=== PATIENT | female | born 1945 | race Caucasian/White ===

== ENCOUNTER 2017-05-21 12:30 | Inpatient (IN) | payer OTHER ==
--- NOTE | ~2017-05-21 | CATHLAB ---
[facility] [address] [place] [address] INVASIVE PROCEDURE REPORT Name: LAURA CHI Room #: 214-P [facility]#: [id number] Admission: 05/21/17 Attend Phys: Vishal Moulton Discharge: 05/22/17 Date of : 47 Date of Service: 05/22/17 1356 Report #: [id number] THIS REPORT FOR: //name// CC: Steve Dumas DATE OF SERVICE: 05/22/2017 PROCEDURES: 1. Electrical cardioversion. 2. Supervision of conscious sedation. INDICATIONS: A 72-year-old female patient with symptomatic atrial fibrillation, presents for electrical cardioversion, having failed pharmacologic attempts. TECHNICAL PROFESSIONAL: Vishal Dumas M.D. BRIEF DESCRIPTION OF PROCEDURE: After informed consent was obtained, the patient was brought to the cardiac agriculture laborer, prep and hold. AP patches in place. Continuous electrocardiographic and oximetric monitoring was performed. Versed 2 mg and 25 of Demerol were given for sedation. The patient underwent one single biphasic 200-joule shock, which converted her to sinus rhythm. Post-procedure, the patient was monitored till awake and alert. She tolerated the procedure, there were no complications. <ELECTRONICALLY SIGNED> By: Vishal Dumas MD 06/09/17 1128 1356 2120 Vishal Dumas MD /nt
--- NOTE | ~2017-05-21 | H ---
[facility] [place] [address] HISTORY AND PHYSICAL Name: LAURA CHI Room #: 214-P [facility] IN M.R.#: [id number] Admission: 05/21/17 Attend Phys: Vishal Dumas Discharge: 05/22/17 Date of : 47 Report #: [id number] THIS REPORT FOR: //name// CC: Steve Dumas DATE OF SERVICE: 05/21/2017 HISTORY OF PRESENT ILLNESS: This is a very pleasant female well known to me who underwent initial diagnosis of atrial fibrillation previously. She has been anticoagulated adequately for 4 weeks and now presents for cardioversion. She denies any significant chest pain, pressure, tightness, heaviness, fullness, is not having significant problems. She is tolerating the medications quite well and has been adequately anticoagulated with a novel agent of Eliquis. ALLERGIES: NO KNOWN DRUG ALLERGIES. PAST MEDICAL HISTORY: Significant for acid peptic disease, hypertension, history of non-Hodgkin's lymphoma, and breast cancer. PAST SURGICAL HISTORY: Significant for right mastectomy and hysterectomy. REVIEW OF SYSTEMS: Except for symptoms previously mentioned and those commensurate with comorbid state, the 10-point review of system is negative. PHYSICAL EXAMINATION: GENERAL: Well-developed female, resting normally, in no acute distress. VITAL SIGNS: Noted in the chart. HEENT: Normocephalic, atraumatic. Pupils are equal, round, reactive to light and accommodation. Extraocular muscles are intact. Sclerae and conjunctivae are anicteric. NECK: JVD is normal. Carotid upstrokes are bilaterally symmetrical. No bruits are heard. No thyromegaly. No lymphadenopathy. LUNGS: Clear to auscultation. No wheezes, rhonchi or crackles. No CVA tenderness. CARDIAC: Demonstrates a regular rhythm. Normal first and second heart sounds. No ventricular or atrial gallops, no rubs noted. No murmurs. No lifts or heaves, PMI normal. ABDOMEN: Soft, nontender, nondistended. Normal bowel sounds. EXTREMITIES: Without cyanosis, clubbing or edema. Distal pulses are intact. DTR symmetrical. NEUROLOGIC: Cranial nerves 2-12 are grossly normal and symmetrical. PSYCHIATRIC: Alert, oriented with normal affect. SKIN: Warm and dry. IMPRESSION: Paroxysmal atrial fibrillation. Rate is controlled, anticoagulated here for cardioversion. The risks, complications and alternatives to chemical [facility] [address] [place] [address] HISTORY AND PHYSICAL Name: LAURA CHI Room #: 214-P [facility] IN [facility].#: [id number] Admission: 05/21/17 Attend Phys: Vishal Dumas Discharge: 05/22/17 Date of : 47 Report #: [id number] and subsequent electrical cardioversion warranted had been discussed with the patient; she voices understanding and wishes to proceed. <ELECTRONICALLY SIGNED> By: Vishal Dumas MD 06/09/17 1127 1213 2358 Vishal Dumas MD /elizabeth
--- NOTE | ~2017-05-21 | EKG ---
[address] [place] [address] ELECTROCARDIOGRAM REPORT Name: LAURA CHI Room #: 214-[facility] IN M.R.#: [id number] Admission: 05/21/17 Attend Phys: Vishal Dumas Discharge: 05/22/17 Date of : 47 Report #: [id number] THIS REPORT FOR: //name// [facility] Test Date: 2017-05-22 Test Time: 12:03:18 Pat Name: LAURA CHI Department: Room: 214 P Gender: F Logistics Project Manager: Francisca STATON : 1945 Requested By: Vishal Dumas Order Number: [id number] MD: Rey Bustillos Measurements Intervals [place] Rate: 75 P: 60 VA: 174 QRS: 154 QRSD: 134 T: 22 QT: 485 QTc: 542 Interpretive Statements Sinus rhythm Right bundle branch block Compared to ECG 01/06/2017 05:38:13 Atrial fibrillation no longer present Electronically Signed On 05-22-2017 16:15:48 SOFT METALS ENGRAVER HAND by Rey Bustillos [email or web address] <ELECTRONICALLY SIGNED> By: Rey Bustillos MD, [facility] 05/22/17 1615 1203 1203 Rey Bustillos MD, [facility] /EPI
--- NOTE | ~2017-05-21 | D ---
[facility] [place] [address] DISCHARGE SUMMARY Name: LAURA CHI Room #: 214-P [facility] IN M.R.#: [id number] Admission: 05/21/17 Attend Phys: Vishal Dumas Discharge: 05/22/17 Date of : 47 Report #: [id number] THIS REPORT FOR: //name// CC: Steve Dumas DATE OF SERVICE: 05/22/2017 ADMITTING DIAGNOSIS: Symptomatic paroxysmal atrial fibrillation. DISCHARGE GIAGNOSIS: Symptomatic paroxysmal atrial fibrillation. PROCEDURE PERFORMED: Electrical cardioversion. DISCHARGE MEDICATIONS: 1. Home meds. 2. Amiodarone 200 mg p.o. b.i.d. for 1 week, then q.a.m. for one week, then half a tablet from then on. FOLLOWUP: Dr. Dumas in 4 weeks. DISCHARGE DIET: Home diet. BRIEF CLINICAL HISTORY: See history and physical in the chart. HOSPITAL COURSE: The patient was admitted to the hospital and underwent IV amiodarone infusion. Subsequently, did not convert her and she underwent uncomplicated electrical cardioversion requiring 200 joules single shot AP paddles with a biphasic mode. This converted to sinus rhythm. The patient did well post-procedure and was allowed to ambulate without any issues developing. Discharged in improved and stable condition to follow up with previous stated discharge instructions and medications. <ELECTRONICALLY SIGNED> By: Vishal Dumas MD 06/09/17 1127 1205 Tg Dumas MD /elizabeth
[~2017-05-21 12:30] MED LIST: ACETAMINOPHEN325 M1 PO; ALBUTEROL2.5 MG/0.5 INH; ASPIR 8181 MG PO; CALCIUM 500 +1 EAC5 PO; CENTRUM SILVER1 EAC4 PO; CLARITIN10 MG PO; COREG6.25 MG PO; CULTURELLE1 EACH PO; DIFLUCAN200 MG IV; DILTIAZEM 24HR240 M1 PO; ELIQUIS5 MG PO; EVISTA PO; HEPARIN SO1000 UNIT/ IV PUSH; MORPHINE 44 MG/1 ML IV PUSH; ZOSYN 2.25 GR2.25 GM IV
[2017-05-21 12:55] VITALS: BP 1255/65
[2017-05-21 13:56] LABS: CREATININE 0.8 mg/dL (0.6-1.0); POTASSIUM 3.8 mmol/L (3.5-5.1)
[2017-05-21 14:01] LABS: ALBUMIN 3.1 g/dL (3.4-5.0); TOTAL BILIRUBIN 0.3 mg/dL (<0.1-1.0); TOTAL PROTEIN 6.9 g/dL (6.4-8.2)
[2017-05-21] MEDS ORDERED: PROTONIX40 M1 PO (15:10)
[2017-05-21] MEDS ORDERED: CALCIUM 600 +1 EAC1 PO (15:12)
[2017-05-21] MEDS ORDERED: ASPIR 8181 M1 PO (15:12)
[2017-05-21] MEDS ORDERED: CARTIA XT240 M1 PO (15:12)
[2017-05-21] MEDS ORDERED: ELIQUIS5 MG PO (15:13)
[2017-05-21] MEDS ORDERED: LASIX 40 MG TAB40 M2 PO (15:14)
[2017-05-21] MEDS ORDERED: K-DUR 20 MEQ T20 MEQ PO (15:15)
[2017-05-21 16:05] VITALS: BP 124/68
[2017-05-21 19:28] VITALS: BP 111/56
[2017-05-22 00:14] VITALS: BP 107/65
[2017-05-22 04:37] VITALS: BP 109/65
[2017-05-22 07:59] VITALS: BP 129/90
[2017-05-22 12:48] VITALS: BP 129/90
[2017-05-22] MEDS ORDERED: PACERONE 200 M200 M1 PO (13:07)
== END 2017-05-22 13:45 | disposition home or self-care (01) | DRG 310 ==
LOC: 2N 12:30 → ENTRNSPT 05-22 13:31 → EDTRNSPTSTS 05-22 13:34 → 2N 05-22 13:45
PROVIDERS: Internal Medicine
PROC: 5A2204Z Restoration of Cardiac Rhythm, Single (ICD-10-PCS; principal; 2017-05-22)
DX: I48.0 Paroxysmal atrial fibrillation (principal); I10 Essential (primary) hypertension; Z85.72 Personal history of non-Hodgkin lymphomas; Z85.3 Personal history of malignant neoplasm of breast; Z90.11 Acquired absence of right breast and nipple; Z90.710 Acquired absence of both cervix and uterus
CPT/HCPCS: 10797

== ENCOUNTER 2018-10-02 07:18 | Emergency (ER) | payer OTHER ==
[~2018-10-02] VITALS: Ht 162.6 cm; Wt 65.5 kg
[~2018-10-02 07:18] MED LIST changes: +ASPIR 8181 M1 PO; +CALCIUM 600 +1 EAC1 PO; +CARTIA XT240 M1 PO; +K-DUR 20 MEQ T20 MEQ PO; +LASIX 40 MG TAB40 M2 PO; +PACERONE 200 M200 M1 PO; +PROTONIX40 M1 PO
[2018-10-02 07:48] LABS: ABSOLUTE NEUTROPHILS 4.3 thou/uL (1.4-8.2); BASOPHILS 0.6 % (0.0-2.0); EOSINOPHILS 1.9 % (0.0-3.0); HEMATOCRIT 43.8 % (37.0-47.0); HEMOGLOBIN 15.1 gm/dL (12.0-15.0); MCH 30.9 pg (26.0-34.0); MCHC 34.4 g/dL (28.0-37.0); MCV 89.8 fL (80.0-100.0); MONOCYTES 7.4 % (1.0-8.0); PLATELET COUNT 214 thou/uL (150-400); POLYS 59.1 % (36.0-66.0); RBC 4.88 mil/uL (4.20-5.00); RDW 14.2 % (10.5-14.5); WBC 7.2 thou/uL (4.0-11.0)
[2018-10-02 07:54] LABS: ANION GAP 8 mmol/L (7-16); BUN 12 mg/dL (7-18); CALCIUM 9.9 mg/dL (8.5-10.1); CHLORIDE 103 mmol/L (98-107); CO2 27 mmol/L (21-32); CREATININE 0.9 mg/dL (0.6-1.0); GLUCOSE 143 mg/dL (74-106); POTASSIUM 3.8 mmol/L (3.5-5.1); SODIUM 138 mmol/L (136-145)
[2018-10-02 08:03] LABS: TROPONIN-I <0.06 ng/mL (<0.06)
[2018-10-02 08:30] VITALS: BP 125/59
--- NOTE | 2018-10-05 17:56 | EKG ---
[place] [address] [place] [address] ELECTROCARDIOGRAM REPORT Name: LAURA CHI Room #: [facility]#: [id number] ������������������ Admission: 10/02/18 ������������������ Attend Phys: Discharge: 10/02/18 ������������������ Date of : 47 Report #: [id number] ����������������������������������������������������������������� [id number] THIS REPORT FOR: //name// [facility] ED Test Date: 2018-10-02 Test Time: 07:24:00 Pat Name: LAURA CHI Department: Room: Gender: F Enforcement Officer: regency meridian : 1945 Requested By: Fabio Dsouza Order Number: [id number] MD: Rey Bustillos Measurements Intervals [place] Rate: 89 P: 70 FL: 156 QRS: -84 QRSD: 148 T: 27 QT: 429 QTc: 523 Interpretive Statements Sinus rhythm Multiform ventricular premature complexes RBBB and LAFB Compared to ECG 05/22/2017 12:03:18 Ventricular premature complex(es) now present Electronically Signed On 10-05-2018 17:55:53 CDT by Rey Bustillos [email or web address] ��������������������������������������������� <ELECTRONICALLY SIGNED> ���������������������������������������� By: Rey Bustillos MD, [facility] ��������������������������������������������� 10/05/18 1755 3 3 Rey Bustillos MD, [facility] /EPI
== END 2018-10-02 08:14 | disposition home or self-care (01) ==
LOC: ER 07:18
PROVIDERS: Emergency Medicine
DX: R00.2 Palpitations (principal); I49.3 Ventricular premature depolarization; Z85.3 Personal history of malignant neoplasm of breast; Z90.710 Acquired absence of both cervix and uterus; Z90.10 Acquired absence of unspecified breast and nipple

== ENCOUNTER → 2020-02-19 | Outpatient (CLI) | payer OTHER | LOC: SJCVC 09:55 | PROVIDERS: ATTEND Internal Medicine | DX: I48.19 Other persistent atrial fibrillation (principal); I45.10 Unspecified right bundle-branch block; R94.31 Abnormal electrocardiogram [ECG] [EKG]; I73.9 Peripheral vascular disease, unspecified; I38 Endocarditis, valve unspecified; E78.5 Hyperlipidemia, unspecified; I25.10 Atherosclerotic heart disease of native coronary artery without angina pectoris; Z79.899 Other long term (current) drug therapy; Z82.49 Family history of ischemic heart disease and other diseases of the circulatory system ==

== ENCOUNTER → 2020-02-23 | Outpatient (CLI) | payer OTHER | LOC: SJCVCIMAG 09:42 | PROVIDERS: ATTEND Internal Medicine | DX: I08.8 Other rheumatic multiple valve diseases (principal); I48.91 Unspecified atrial fibrillation; I25.10 Atherosclerotic heart disease of native coronary artery without angina pectoris; Z79.899 Other long term (current) drug therapy ==

== ENCOUNTER → 2020-08-29 | Outpatient (CLI) | payer OTHER | LOC: SJCVC 09:16 | PROVIDERS: ATTEND Internal Medicine | DX: K25.5 Chronic or unspecified gastric ulcer with perforation (principal); K37 Unspecified appendicitis; K25.9 Gastric ulcer, unspecified as acute or chronic, without hemorrhage or perforation; I48.91 Unspecified atrial fibrillation; I25.10 Atherosclerotic heart disease of native coronary artery without angina pectoris; E78.5 Hyperlipidemia, unspecified; Z85.3 Personal history of malignant neoplasm of breast ==

== ENCOUNTER → 2020-09-28 | Outpatient (CLI) | payer OTHER | LOC: SJCVC 09:40 | PROVIDERS: ATTEND Internal Medicine | DX: I42.9 Cardiomyopathy, unspecified (principal); I48.91 Unspecified atrial fibrillation; I25.10 Atherosclerotic heart disease of native coronary artery without angina pectoris; E78.5 Hyperlipidemia, unspecified; Z79.82 Long term (current) use of aspirin; Z79.899 Other long term (current) drug therapy; Z85.3 Personal history of malignant neoplasm of breast ==

== ENCOUNTER → 2020-10-05 | Outpatient (CLI) | payer OTHER | LOC: SJCVC 08:49 | PROVIDERS: ATTEND Internal Medicine | DX: I42.9 Cardiomyopathy, unspecified (principal); I25.10 Atherosclerotic heart disease of native coronary artery without angina pectoris; I48.91 Unspecified atrial fibrillation; E78.5 Hyperlipidemia, unspecified; Z79.82 Long term (current) use of aspirin; Z79.899 Other long term (current) drug therapy; Z85.3 Personal history of malignant neoplasm of breast ==

== ENCOUNTER → 2021-01-04 | Outpatient (CLI) | payer OTHER ==
[~2021-01-04] MED LIST changes: +BIOTIN1000 MCG PO; +CARVEDILOL25 MG PO; +LISINOPRIL2.5 MG PO; +LORATIDINE 10 M10 M1 PO; +SIMVASTATIN10 MG PO
== END ==
LOC: SJCVCIMAG 12-29 08:59
PROVIDERS: ATTEND Internal Medicine
DX: I08.8 Other rheumatic multiple valve diseases (principal); I48.91 Unspecified atrial fibrillation; I42.9 Cardiomyopathy, unspecified; I50.9 Heart failure, unspecified

== ENCOUNTER 2021-01-11 08:46 | Observation (INO) | payer OTHER ==
[~2021-01-11] VITALS: Ht 162.6 cm; Wt 64.0 kg
[~2021-01-11 08:46] MED LIST changes: -BIOTIN1000 MCG PO; -CARVEDILOL25 MG PO; -LISINOPRIL2.5 MG PO; -LORATIDINE 10 M10 M1 PO; -SIMVASTATIN10 MG PO
[2021-01-11 09:55] VITALS: BP 130/81
[2021-01-11] MEDS ORDERED: BIOTIN1000 MCG PO (10:05)
[2021-01-11] MEDS ORDERED: CARVEDILOL25 MG PO (10:08)
[2021-01-11] MEDS ORDERED: SIMVASTATIN10 MG PO (10:08)
[2021-01-11] MEDS ORDERED: LORATIDINE 10 M10 M1 PO (10:09)
[2021-01-11] MEDS ORDERED: LISINOPRIL2.5 MG PO (10:09)
[2021-01-11 10:20] LABS: HEMATOCRIT 44.1 % (37.0-47.0); HEMOGLOBIN 14.8 gm/dL (12.0-15.0); MCH 31.1 pg (26.0-34.0); MCHC 33.5 g/dL (28.0-37.0); MCV 92.7 fL (80.0-100.0); RBC 4.75 mil/uL (4.20-5.00); RDW 14.6 % (10.5-14.5); WBC 5.6 thou/uL (4.0-11.0)
[2021-01-11 10:24] LABS: CALCIUM 9.2 mg/dL (8.5-10.1); CREATININE 1.2 mg/dL (0.6-1.0); POTASSIUM 3.8 mmol/L (3.5-5.1)
--- NOTE | 2021-01-11 10:41 | 2DMMODE ---
[facility] [address] [place] [address] 2 D/M-MODE ECHOCARDIOGRAM Name: LAURA CHI Room #: REG [facility]#: [id number] Admission: 01/11/21 Attend Phys: Vishal Dumas Discharge: Date of : 47 Report #: [id number] THIS REPORT FOR: cc: Juan Jorgensen MD, Christopher B. MD Lammoglia, Francisco J. MD ~ APPROVED REPORT Study performed: 01/11/2021 09:09:09 EXAM: Comprehensive 2D, Doppler, and color-flow Echocardiogram Patient Location: Out-Patient Status: routine BSA: 1.67 HR: 100 bpm Rhythm: Atrial Fibrillation Other Information Study Quality: Good Indications Pre-Op ICD placement. 2D Dimensions IVSd: 7.80 (7-11mm) LVOT Diam: 19.52 (18-24mm) LVDd: 53.41 mm PWd: 8.64 (7-11mm) Ascending Ao: 29.70 (22-36mm) LVDs: 48.27 (25-40mm) Left Atrium: 34.64 (27-40mm) Aortic Root: 29.69 mm Volumes Left Atrial Volume (Systole) Single Plane 4CH: 45.74 mL Single Plane 2CH: 53.47 mL LA ESV Index: 31.00 mL/m2 Aortic Valve AoV Peak Murali.: 0.89 m/s AO Peak Gr.: 3.15 mmHg LVOT Max P.64 mmHg LVOT Max V: 0.64 m/s PETER Vmax: 2.16 cm2 [facility] [address] [place] [address] 2 D/M-MODE ECHOCARDIOGRAM Name: ARTILAURA Aleksandra Room #: REG [facility]#: [id number] Admission: 01/11/21 Attend Phys: Vishal Moulton Discharge: Date of : 47 Report #: [id number] Mitral Valve MV Decel. Time: 104.64 ms MV E Max Murali.: 1.02 m/s Pulmonary Valve PV Peak Murali.: 0.54 m/s PV Peak Gr.: 1.15 mmHg Tricuspid Valve TR Peak Murali.: 3.00 m/s RAP Estimate: 5.00 mmHg TR Peak Gr.: 35.00 mmHg PA Pressure: 40.00 mmHg Left Ventricle The left ventricle is normal size. There is normal left ventricular wall thickness. Left ventricular systolic function is severely decreased. LVEF is 25-30%. This study is not technically sufficient to allow evaluation of the LV diastolic function due to atrial fibrillation. Right Ventricle The right ventricle is normal size. Right ventricle is mildly hypokinetic. Atria Left atrium is mildly dilated. The right atrium size is normal. Aortic Valve The aortic valve is normal in structure. Trace aortic regurgitation. There is no aortic valvular stenosis. Mitral Valve The mitral valve is normal in structure. Moderate mitral regurgitation. Tricuspid Valve The tricuspid valve is normal in structure. Mild tricuspid regurgitation. Estimated PAP is 40mmHg. Pulmonic Valve The pulmonary valve is normal in structure. Trace pulmonic regurgitation. Great Vessels The aortic root is normal in size. The ascending aorta is normal in size. IVC is normal in size and collapses >50% with [facility] [address] [place] [address] 2 D/M-MODE ECHOCARDIOGRAM Name: LAURA CHI Room #: REG [facility]#: [id number] Admission: 01/11/21 Attend Phys: Vishal Moulton Discharge: Date of : 47 Report #: [id number] inspiration. Pericardium There is no pericardial effusion. <Conclusion> The left ventricle is normal size. Left ventricular systolic function is severely decreased. LVEF is 25-30%. The right ventricle is normal size. Right ventricle is mildly hypokinetic. Left atrium is mildly dilated. The aortic valve is normal in structure. Trace aortic regurgitation. The mitral valve is normal in structure. Moderate mitral regurgitation. The tricuspid valve is normal in structure. Mild tricuspid regurgitation. Estimated PAP is 40mmHg. The pulmonary valve is normal in structure. Trace pulmonic regurgitation. The aortic root is normal in size. There is no pericardial effusion. <ELECTRONICALLY SIGNED> By: Vishal Dumas MD 01/11/21 104 40 40 Vishal Dumas MD /INF
[2021-01-11 16:30] VITALS: BP 145/84
--- NOTE | 2021-01-11 17:47 | NUR ---
PATIENT ARRIVED TO UNIT AT 1620. PT IS STABLE AT TIME OF ADMISSION. PT IS ORIENTED TO UNIT AND GIVEN TEACHING COMMERCIAL MAINTENANCE TECHNICIAN LIGHT, FALL PREVENTION, BATHROOM, AND DISCHARGE PLANING. PTS TELE MONITOR APPLIED PT IS AFIB WITH A HEART RATE IN THE 100'S. PT IS RESTING IN BED WITH IMMOBLIZER IN PLACE. SITE HAS NO REDNESS OR INFLAMATION AT THIS TIME AND PT IS COMPLAING OF NO PAIN. WILL CONTINUE TO MONITOR.
[2021-01-11 19:27] VITALS: BP 109/59
--- NOTE | 2021-01-11 19:29 | NUR ---
NOTIFED DR. JUAREZ ABOUT NO ORDERS FOR MEDICATIONS, STATED NO NEW MEDICATION FOR PATIENT TO TAKE TONIGHT, WILL RESUME HOME MEDS
--- NOTE | 2021-01-12 03:21 | NUR ---
UPON SHIFT REPORT, PT SLEEPING. PT OBSERVED RESTING WITHOUT INTERRUPTION OR OBSERVATION OF PAIN, DISCOMFORT OR SOB WHILE ON ROOM AIR. PT RESTING IN BED FOR REMAINDER OF SHIFT, FREQUENT REPOSITIONING ENCOURAGED WHILE IN BED, PT NOTED TO SHIFT INDEPENDENTLY. PT ENCOURAGED TO NOTIFY STAFF FOR ALL NEEDS, CALL LIGHT WITHIN REACH, BED ALARM ON, BED LOCKED IN LOWEST POSITION, FREQUENT MONITORING WILL CONTINUE.
[2021-01-12 03:54] VITALS: BP 141/95
[2021-01-12 07:04] VITALS: BP 162/79
--- NOTE | 2021-01-12 10:09 | NUR ---
TOOK OVER CARE FOR THIS PATIENT AT 0700. PATIENT RESTING IN BED AT THIS TIME. PATIENT DENIES ANY NEEDS RIGHT NOW. PATIENT DENIES PAIN, SOA, HEADACHE, DIZZINESS, OR FATIGUE. PATIENT WENT FOR CHEST XRAY THIS MORNING. DISCHARGE PENDING WAITING FOR PROPERTY STAFF ACCOUNTANT TO SEE PATIENT. FALL PRECAUTIONS IN PLACE, CALL LIGHT AND PERSONAL ITEMS WITHIN REACH.
[2021-01-12 11:20] VITALS: BP 110/63
[2021-01-12 16:11] VITALS: BP 144/80
[2021-01-12 17:40] VITALS: BP 144/80
--- NOTE | 2021-01-12 18:16 | NUR ---
DISCHARGE EDUCATION PROVIDED TO PATIENT AND SON PRESENT FOR EDUCATIONAL SESSION. PATIENT AGREEABLE TO DISCHARGE PLAN AND PLANS TO FOLLOW UP WITH LABOR SERVICE REPRESENTATIVE INDICATED. PATIENT DISCHARGED VIA PERSONAL VEHICLE BY NURSING STAFF. DENIES ANY QUESTIONS OR CONCERNS.
== END 2021-01-12 18:39 | disposition home or self-care (01) ==
LOC: CATH 08:46 → 2N 16:56
PROVIDERS: ADMIT Internal Medicine; ATTEND Internal Medicine
DX: I42.9 Cardiomyopathy, unspecified (principal); I48.21 Permanent atrial fibrillation; I10 Essential (primary) hypertension; E78.5 Hyperlipidemia, unspecified; I34.0 Nonrheumatic mitral (valve) insufficiency; Z79.82 Long term (current) use of aspirin; Z79.899 Other long term (current) drug therapy

== ENCOUNTER 2021-02-27 05:43 | Inpatient (IN) | payer OTHER ==
[~2021-02-27] VITALS: Ht 162.6 cm; Wt 62.1 kg
[~2021-02-27 05:43] MED LIST changes: +BIOTIN1000 MCG PO; +CARVEDILOL25 MG PO; +LISINOPRIL2.5 MG PO; +LORATIDINE 10 M10 M1 PO; +SIMVASTATIN10 MG PO
[2021-02-27 05:54] VITALS: BP 101/67
[2021-02-27 06:44] LABS: ABSOLUTE NEUTROPHILS 4.7 thou/uL (1.4-8.2); BASOPHILS 1.1 % (0.0-2.0); EOSINOPHILS 5.1 % (0.0-3.0); HEMATOCRIT 43.3 % (37.0-47.0); HEMOGLOBIN 13.9 gm/dL (12.0-15.0); LYMPHOCYTES 20.4 % (24.0-44.0); MCH 29.3 pg (26.0-34.0); MCHC 32.2 g/dL (28.0-37.0); MONOCYTES 8.8 % (1.0-8.0); PLATELET COUNT 233 thou/uL (150-400); POLYS 64.6 % (36.0-66.0); RBC 4.76 mil/uL (4.20-5.00); RDW 15.2 % (10.5-14.5); WBC 7.3 thou/uL (4.0-11.0)
[2021-02-27 06:50] LABS: CALCIUM 9.3 mg/dL (8.5-10.1); POTASSIUM 3.5 mmol/L (3.5-5.1)
--- NOTE | 2021-02-27 09:01 | EKG ---
[place] [address] [facility] [place] [address] ELECTROCARDIOGRAM REPORT Name: LAURA CHI [id number] Admission: 02/27/21 Attend Phys: Discharge: Date of : 47 Report #: [id number] [facility] ED Test Date: 2021-02-27 Test Time: 05:56:15 Pat Name: LAURA CHI Department: Room: Gender: F Sign Installer: ALICE : 1945 Requested By: Noel Tatum Order Number: [id number] MD: Rey Bustillos Measurements Intervals [place] Rate: 112 P: [place]: QRS: 160 QRSD: 132 T: 26 QT: 380 QTc: 519 Interpretive Statements Atrial fibrillation Right bundle branch block Abnormal lateral Q waves Anteroseptal infarct, old Baseline wander in lead(s) V2 Compared to ECG 10/02/2018 07:24:00 Q waves now present Sinus rhythm no longer present Electronically Signed On 02-27-2021 9:01:05 MEDICAL ASSISTANT SECRETARY by Rey Bustillos [email or web address] <ELECTRONICALLY SIGNED> By: Rey Bustillos MD, [facility] 02/27/21 0901 0556 0556 Rey Bustillos MD, [facility] /EPI
--- NOTE | 2021-02-27 10:51 | NUR ---
Pt helped to bedside commode with this RN, pt transfered with a steady gait and denies any dizziness
[2021-02-27 14:39] LABS: URINE BILIRUBIN NEGATIVE (Negative); URINE BLOOD 1+ (Negative); URINE CLARITY CLEAR; URINE COLOR YELLOW; URINE GLUCOSE-RANDOM* NEGATIVE (Negative); URINE KETONES NEGATIVE (Negative); URINE LEUKOCYTES-REFLEX NEGATIVE (Negative); URINE NITRITE-REFLEX NEGATIVE (Negative); URINE PROTEIN (DIPSTICK) NEGATIVE (Negative); URINE UROBILINOGEN 0.2 E.U./dl (0.2-1.0)
--- NOTE | 2021-02-27 14:41 | NUR ---
Nanette JONES with the patients cardiology group called back for consult. She was informed patient would like to speak to her cuff runner before allowin the hospital to put a central line in her for Levophed. Nanette JONES informs this RN she will speak with the cuff runner and try and get him to come by and speak to the patient.
[2021-02-27 14:58] LABS: SQUAMOUS 0-3 Few /LPF (0-3)
[2021-02-27 14:59] LABS: BACTERIA-REFLEX None Seen /HPF (None Seen); CASTS None Seen /LPF (None Seen); CRYSTALS None Seen /LPF (None Seen); URINE RBC 3-10 Few /HPF (NONE SEEN); URINE WBC-REFLEX 0-5 Rare /HPF (0-5)
[2021-02-27 21:04] VITALS: BP 114/76
[2021-02-27 21:19] VITALS: BP 115/79
--- NOTE | 2021-02-27 23:09 | NUR ---
PT IS A 76-YEAR-OLD FEMALE ADMITTED FROM ED WITH AFIB W/RVR.PT IS A/OX4.VSS.AFIB ON MONITOR WITH CONTROLLED HR UPON ARRIVAL.ORIENTED TO RM AND UNIT ACTIVITIES,REVIEWED POC.ADMISSION ASSESSMENT COMPLETED DOCUMENTED.PT DENIES ANY NEEDS AT THIS TIME.
[2021-02-28 04:00] VITALS: BP 129/88
[2021-02-28 07:15] VITALS: BP 126/88
--- NOTE | 2021-02-28 10:32 | NUR ---
Assumed care of pt this AM. Pt is A&O x4, on RA, Afib on the monitor. Pt denies any chest pain. States she occasionally feels short of air, put O2 at the bedside incase pt feels she needs it. Instructed pt to call if she starts to feel increasingly short of air. Cardiology orders for IV lasix one time & metoprolol. At repeat BP check, pt 98/53. Notified cardiology. Per cardiology WEATHERIZATION OPERATIONS MANAGER, hold Lasix but give Metoprolol. Pt up ad isatu in the room. Fall education provided.
[2021-02-28 11:05] VITALS: BP 118/77
--- NOTE | 2021-02-28 11:43 | NUR ---
PT ADMITTED FOR AFIB/RV. CHART REVIEWED AND DISCUSSED WITH CARE TEAM. CM MET WITH PT THIS DAY. CM ROLE INTRODUCED. PT APPEARED A&OX4. SON AT BEDSIDE. PT CONFIRMS SON AT BEDSIDE WILL BE MAIN CONTACT. [phone]. PT REPORTS SHE LIVES AT HOME BY HERSELF. SHE REPORTS 12-13 STAIRS TO HER BASEMENT BUT RARELY USES THEM. REPORTS HER LAUNDRY IS ON THE FIRST FLOOR. SHE DENIES USE OF ASSISTIVE DEVICES AND REPORTS NO CONCERNS WITH NEEDS AT DISCHARGE ONCE MEDICALLY STABLE. SHE REPORTS SHE IS INDEPENDENT WITH ALL ADLS AND MOBILITY. HER GOAL IS TO RETURN HOME ONCE MEDICALLY STABLE. NO CM INTERVENTIONS NEEDED AT THIS TIME. CM FOLLOWING.
[2021-02-28 15:10] VITALS: BP 112/74
[2021-02-28 19:06] VITALS: BP 95/63
--- NOTE | 2021-03-01 03:31 | NUR ---
Assumed pt care at 1900. Pt is alert and oriented. Pt is ambulatory. No sign of distress noted in pt. Pt is stable. Continues to be in AFIB. Assessment completed and documented. Denies pain. Scheduled meds administered to pt. No acute event through thr night. Continue to monitor. No further needs at this time.
[2021-03-01 04:10] VITALS: BP 121/80
[2021-03-01 07:10] VITALS: BP 118/80
[2021-03-01 10:22] LABS: ABSOLUTE NEUTROPHILS 4.3 thou/uL (1.4-8.2); BASOPHILS 1.3 % (0.0-2.0); EOSINOPHILS 1.8 % (0.0-3.0); HEMOGLOBIN 14.1 gm/dL (12.0-15.0); LYMPHOCYTES 21.7 % (24.0-44.0); MCH 30.4 pg (26.0-34.0); MCHC 33.6 g/dL (28.0-37.0); MCV 90.3 fL (80.0-100.0); MONOCYTES 10.8 % (1.0-8.0); PLATELET COUNT 229 thou/uL (150-400); POLYS 64.4 % (36.0-66.0); RBC 4.65 mil/uL (4.20-5.00); RDW 15.1 % (10.5-14.5); WBC 6.7 thou/uL (4.0-11.0)
[2021-03-01 10:38] LABS: CALCIUM 8.8 mg/dL (8.5-10.1); CREATININE 1.1 mg/dL (0.6-1.0); POTASSIUM 3.9 mmol/L (3.5-5.1)
[2021-03-01 11:15] VITALS: BP 116/76
[2021-03-01 16:00] VITALS: BP 108/65
[2021-03-01 19:41] VITALS: BP 125/74
--- NOTE | 2021-03-02 04:21 | NUR ---
ASSESSMENT CHARTED TOOK OVER CARE OF PATIENT AT 0100. PATIENT SLEEPING IN ROOM. PATIENT VPACED ON TELEMETRY, ON ROOM AIR, UP AT EAGLE IN ROOM. IF PATIENTS BLOOD PRESSURE IS STABLE PATIENT MAY DISCHARGE TODAY.
[2021-03-02 04:48] VITALS: BP 143/75
[2021-03-02 05:17] VITALS: BP 130/82
[2021-03-02] MEDS ORDERED: METOPROLOL SUCC50 MG PO (08:07)
[2021-03-02] MEDS ORDERED: TORSEMIDE20 MG PO (08:07)
[2021-03-02 08:44] VITALS: BP 125/64
--- NOTE | 2021-03-02 11:32 | NUR ---
TOOK OVER CARE OF THIS PATIENT AT 0700. PT RESTING IN BED AT THIS TIME. PT AXOX4; DENIES ANY NEEDS AT THIS TIME. PT UP AD EAGLE IN HER ROOM. PT ON ROOM AIR; DENIES SOA. DENIES ANY PAIN. ASSESSMENTS CHARTED. WILL CONTINUE TO MONITOR. FALL PRECAUTIONS IN PLACE AND CALL LIGHT WITHIN REACH.
[2021-03-02 11:37] VITALS: BP 110/61
[2021-03-02 13:36] VITALS: BP 110/61
--- NOTE | 2021-03-02 13:57 | NUR ---
DISCHARGE EDUCATION PROVIDED TO PATIENT AND HER SON WAS PRESENT DURING EDUCATION SESSION. PT AGREEABLE TO DISCHARGE PLAN AND WILL FOLLOWUP WITH CARDIOLOGY SCHEDULED. PT DENIES ANY QUESTIONS. PT DISCHARGED WITH FAMILY MEMBER BY NURSING STAFF.
== END 2021-03-02 16:07 | disposition home or self-care (01) | DRG 193 ==
LOC: ER 05:43 → 2N 08:15 → EROBS 08:15 → 2N 21:09
PROVIDERS: Emergency Medicine; Hospitalist; Nurse Practitioner; ADMIT Hospitalist; ATTEND Hospitalist
DX: J18.9 Pneumonia, unspecified organism (principal); I50.23 Acute on chronic systolic (congestive) heart failure; R65.11 Systemic inflammatory response syndrome (SIRS) of non-infectious origin with acute organ dysfunction; I48.21 Permanent atrial fibrillation; I11.0 Hypertensive heart disease with heart failure; I25.5 Ischemic cardiomyopathy; Z20.822 Contact with and (suspected) exposure to COVID-19; E78.00 Pure hypercholesterolemia, unspecified; E78.5 Hyperlipidemia, unspecified; Z60.2 Problems related to living alone; I95.9 Hypotension, unspecified; R53.81 Other malaise; M81.0 Age-related osteoporosis without current pathological fracture; Z79.82 Long term (current) use of aspirin; Z79.01 Long term (current) use of anticoagulants; Z86.718 Personal history of other venous thrombosis and embolism; Z90.11 Acquired absence of right breast and nipple; Z95.810 Presence of automatic (implantable) cardiac defibrillator; Z85.3 Personal history of malignant neoplasm of breast; Z90.710 Acquired absence of both cervix and uterus; Z82.49 Family history of ischemic heart disease and other diseases of the circulatory system; Z79.899 Other long term (current) drug therapy
CPT/HCPCS: 10081; 10194